=== PATIENT | male | born 1980 | race Caucasian/White ===

== ENCOUNTER 2016-10-18 13:11 | Emergency (ER) | payer SELFPAY ==
[~2016-10-18] VITALS: Ht 185.4 cm; Wt 75.0 kg
[~2016-10-18 13:11] MED LIST: ALBUTEROL SULF8.5 GM IH; AMBIEN5 MG PO; FLEXERIL10 MG PO; LEVAQUIN500 MG PO; LIDODERM 5% P1 PATCH TD; LIPITOR20 MG PO; LORTAB 5-325 M1 EACH PO; MEDROL DOSEPAK4 MG PO; MOTRIN800 MG PO; NAPROSYN500 MG PO; NAPROXEN500 MG PO; NEURONTIN800 MG PO; NOHOMEMEDS; PEN-VEE K,VEET500 MG PO; PROVENTIL,2.5 MG/3 M IH; ROBITUSSIN AC,T10 ML PO; ROBITUSSIN100 MG/5 M PO; TRAMADOL HCL50 MG PO; ULTRAM50 MG PO; VALIUM5 MG PO; ZITHROMAX Z-PA250 MG PO; ZOFRAN ODT4 MG PO; ZOFRAN4 MG PO
[2016-10-18] MEDS ORDERED: PROVENTIL,2.5 MG/3 M IH (15:39)
[2016-10-18] MEDS ORDERED: LEVAQUIN500 MG PO (15:39)
[2016-10-18] MEDS ORDERED: ULTRAM50 MG PO (15:54)
[2016-10-18 15:56] VITALS: BP 134/95
== END 2016-10-18 15:55 | disposition left against medical advice (07) ==
LOC: RME 13:11 → EME 13:11 → RME 15:55
DX: R09.02 Hypoxemia (principal); J20.9 Acute bronchitis, unspecified; F17.200 Nicotine dependence, unspecified, uncomplicated; J45.909 Unspecified asthma, uncomplicated; I10 Essential (primary) hypertension
CPT/HCPCS: 71020; 87651 90; 94640; 99281; 99284

== ENCOUNTER 2016-11-10 10:59 | Emergency (ER) | payer SELFPAY ==
[~2016-11-10] VITALS: Ht 185.4 cm; Wt 72.2 kg
[2016-11-10 11:08] VITALS: BP 190/86
== END 2016-11-10 12:08 | disposition left against medical advice (07) ==
LOC: EME 10:59
DX: F11.20 Opioid dependence, uncomplicated (principal); G89.29 Other chronic pain; J45.909 Unspecified asthma, uncomplicated; I10 Essential (primary) hypertension; F17.200 Nicotine dependence, unspecified, uncomplicated
CPT/HCPCS: 99281; 99284

== ENCOUNTER 2017-01-23 13:20 | Emergency (ER) | payer SELFPAY | END 2017-01-23 15:04 | disposition left against medical advice (07) | LOC: EME 13:20 | DX: R51 Headache (principal); Z53.21 Procedure and treatment not carried out due to patient leaving prior to being seen by health care provider ==

== ENCOUNTER 2017-03-19 09:07 | Emergency (ER) | payer SELFPAY ==
[~2017-03-19] VITALS: Ht 185.4 cm; Wt 73.4 kg
[2017-03-19 11:50] VITALS: BP 145/89
[2017-03-19] MEDS ORDERED: ZITHROMAX Z-PA250 MG PO (11:51)
[2017-03-19] MEDS ORDERED: PREDNISONE50 MG PO (11:51)
[2017-03-19] MEDS ORDERED: FLEXERIL10 MG PO (11:51)
== END 2017-03-19 12:12 | disposition home or self-care (01) ==
LOC: EME 09:07
DX: J45.901 Unspecified asthma with (acute) exacerbation (principal); J40 Bronchitis, not specified as acute or chronic; F17.200 Nicotine dependence, unspecified, uncomplicated; Z86.73 Personal history of transient ischemic attack (TIA), and cerebral infarction without residual deficits; I10 Essential (primary) hypertension
CPT/HCPCS: 71020; 94640; 99281; 99284; J7512

== ENCOUNTER 2017-04-28 09:18 | Emergency (ER) | payer SELFPAY ==
[~2017-04-28] VITALS: Ht 185.4 cm; Wt 66.4 kg
[~2017-04-28 09:18] MED LIST changes: +PREDNISONE50 MG PO
[2017-04-28 09:44] LABS: HEMATOCRIT 47.5 % (38.0-50.0); MCH 31.3 PG (29.0-34.0); MCHC 33.9 G/DL (30.0-36.0); MCV 92.2 FL (86-99); MEAN PLAT.VOLUME 9.9 uM^3 (9.0-12.4); PLATELET COUNT 208 K/uL (156-360); RBC DIS.WIDTH-CV 12.5 % (11.8-14.6); RED BLOOD COUNT 5.15 M/uL (4.00-5.50)
[2017-04-28 09:56] LABS: CHLORIDE 98 mEq/L (99-109); POTASSIUM 3.8 mEq/L (3.7-5.4); SODIUM 139 mEq/L (136-147)
[2017-04-28 09:58] LABS: GLUCOSE 184 mg/dL (70-99)
[2017-04-28 09:59] LABS: ANION GAP 13 MEQ/L (2-14)
[2017-04-28 10:02] LABS: GFR ESTIMATE (CALCULATED) > 59 mL/min/
[2017-04-28 10:03] LABS: UREA NITROGEN (BUN) 14 mg/dL (9-23)
[2017-04-28 13:29] VITALS: BP 121/95
== END 2017-04-28 13:30 | disposition left against medical advice (07) ==
LOC: EME 09:18
DX: R06.2 Wheezing (principal); R05 Cough; R11.2 Nausea with vomiting, unspecified; R68.83 Chills (without fever); R06.00 Dyspnea, unspecified; J43.9 Emphysema, unspecified; Z53.20 Procedure and treatment not carried out because of patient's decision for unspecified reasons; F17.200 Nicotine dependence, unspecified, uncomplicated
CPT/HCPCS: 71020; 80048; 81003; 85027; 94640; 99281; 99285

== ENCOUNTER 2017-07-09 11:02 | Emergency (ER) | payer SELFPAY ==
[~2017-07-09] VITALS: Ht 185.4 cm; Wt 75.5 kg
[2017-07-09] MEDS ORDERED: FLEXERIL5 MG PO (13:49)
[2017-07-09] MEDS ORDERED: TRAMADOL HCL50 MG PO (13:49)
[2017-07-09 14:06] VITALS: BP 138/81
== END 2017-07-09 14:07 | disposition home or self-care (01) ==
LOC: EME 11:02
DX: M54.2 Cervicalgia (principal); G89.29 Other chronic pain; F17.200 Nicotine dependence, unspecified, uncomplicated; Z88.5 Allergy status to narcotic agent; Z88.6 Allergy status to analgesic agent
CPT/HCPCS: 99281; 99282

== ENCOUNTER 2017-12-24 17:40 | Emergency (ER) | payer SELFPAY ==
[~2017-12-24] VITALS: Ht 185.4 cm; Wt 73.2 kg
[~2017-12-24 17:40] MED LIST changes: +FLEXERIL5 MG PO
[2017-12-24] MEDS ORDERED: LIDODERM 5% P1 PATCH TD (19:00)
[2017-12-24] MEDS ORDERED: ULTRACET1 TABLET PO (19:00)
[2017-12-24] MEDS ORDERED: VALIUM5 MG PO (19:00)
[2017-12-24] MEDS ORDERED: MOTRIN800 MG PO (19:00)
[2017-12-24 19:11] VITALS: BP 137/88
== END 2017-12-24 19:11 | disposition home or self-care (01) ==
LOC: EME 17:40
DX: M54.41 Lumbago with sciatica, right side (principal); G89.29 Other chronic pain; Z86.73 Personal history of transient ischemic attack (TIA), and cerebral infarction without residual deficits; F17.200 Nicotine dependence, unspecified, uncomplicated
CPT/HCPCS: 99281; 99284

== ENCOUNTER 2018-01-22 12:46 | Emergency (ER) | payer OTHER ==
[~2018-01-22] VITALS: Ht 185.4 cm; Wt 73.4 kg
[~2018-01-22 12:46] MED LIST changes: +ULTRACET1 TABLET PO
[2018-01-22] MEDS ORDERED: BACLOFEN10 MG PO (14:02)
[2018-01-22] MEDS ORDERED: LORTAB 5-325 M1 EACH PO (14:02)
[2018-01-22] MEDS ORDERED: NAPROSYN500 MG PO (14:02)
[2018-01-22 14:30] VITALS: BP 137/91
== END 2018-01-22 14:31 | disposition home or self-care (01) ==
LOC: EME 12:46
DX: S16.1XXA Strain of muscle, fascia and tendon at neck level, initial encounter (principal); G89.29 Other chronic pain; Y99.0 Civilian activity done for income or pay; F17.210 Nicotine dependence, cigarettes, uncomplicated; Z88.6 Allergy status to analgesic agent; Z88.5 Allergy status to narcotic agent
CPT/HCPCS: 99281; 99284